=== PATIENT | female | born 1985 | race Caucasian/White ===

== ENCOUNTER 2016-11-29 14:21 | Emergency (ER) | payer OTHER ==
[~2016-11-29] VITALS: Ht 175.3 cm; Wt 99.5 kg
[~2016-11-29 14:21] MED LIST: BIOTIN1 MG PO; CEFTIN 250250 MG/TAB PO; NORCO 325 MG-7.1 TAB PO; ORTHO TRI-CYCLE1 TA2 PO; PRENATAL1 TA1 PO; REGLAN 10MG10 MG/TAB PO; ZANTAC 7575 MG PO; ZOFRAN ODT4 MG PO; ZOFRAN8 MG PO; [UNRECOGNIZED DRUG - OTHER]
[2016-11-29 14:23] VITALS: TEMP 99.6
[2016-11-29] MEDS ORDERED: XANAX 0.5MG0.5 MG PO (14:26)
[2016-11-29] MEDS ORDERED: TIROSINT150 MC1 PO (14:26)
[2016-11-29 15:34] LABS: BASO % 0.3 % (0.0-2.0); EOS % 0.3 % (0-4.0); GRAN # 9.2 (1.4-6.5); GRAN % 78.7 % (42.2-75.2); HEMATOCRIT 41.1 % (37.0-47.0); HEMOGLOBIN 14.4 g/dl (12.5-16.0); LYMPH # 1.6 (1.2-3.4); LYMPH % 13.6 % (20.0-51.0); MEAN CELL VOLUME 87 fl (80.0-100.0); MEAN CORPUSCULAR HEMOGLOBIN 30 pg (27.0-31.0); MEAN CORPUSCULAR HGB CONC 35 g/dl (33.0-37.0); MEAN PLATELET VOLUME 11.3 fl (7.4-10.4); MONO # 0.8 (0.1-0.6); MONO % 6.8 % (1.7-9.3); PLATELET COUNT 264 K/mm3 (130-400); RED BLOOD COUNT 4.73 M/mm3 (4.10-5.30); REDCELL DISTRIBUTION WIDTH-CV 12.2 % (11.5-14.5); WHITE BLOOD COUNT 11.7 K/mm3 (4.8-10.8)
[2016-11-29 15:46] LABS: ADJUSTED CALCIUM 9.5 mg/dL (8.4-10.2); ALANINE AMINOTRANSFERASE 58 U/L (9-52); ALBUMIN 4.6 gm/dL (3.5-5.0); ALKALINE PHOSPHATASE 59 U/L (50-136); ANION GAP 10 mmol/L (7-16); BLOOD UREA NITROGEN 6 mg/dL (7-17); CARBON DIOXIDE 24 mmol/L (22-30); CHLORIDE 108 mmol/L (98-107); GLUCOSE 98 mg/dL (74-106); MAGNESIUM 1.7 mg/dL (1.6-2.3); POTASSIUM 3.7 mmol/L (3.4-5.0); SODIUM 142 mmol/L (137-145); TOTAL PROTEIN 7.9 gm/dL (6.4-8.2)
[2016-11-29 16:18] LABS: TROPONIN-I < 0.012 ng/mL (0.000-0.034)
[2016-11-29] MEDS ORDERED: ATARAX 25MG25 MG/TAB PO (17:03)
[2016-11-29 17:09] VITALS: BP 121/74; PULSE 69
== END 2016-11-29 17:10 | disposition home or self-care (01) ==
LOC: COL.ER 14:21
PROVIDERS: Physician Assistant
DX: R00.2 Palpitations (principal); R07.89 Other chest pain; R94.6 Abnormal results of thyroid function studies; F41.9 Anxiety disorder, unspecified; E03.9 Hypothyroidism, unspecified

== ENCOUNTER 2017-01-19 09:01 | Emergency (ER) | payer OTHER ==
[~2017-01-19] VITALS: Ht 175.3 cm; Wt 94.1 kg
[~2017-01-19 09:01] MED LIST changes: +ATARAX 25MG25 MG/TAB PO; +TIROSINT150 MC1 PO; +XANAX 0.5MG0.5 MG PO
[2017-01-19 09:05] VITALS: TEMP 98.7
[2017-01-19] MEDS ORDERED: PHENERGAN 25 TA25 MG PO (09:09)
[2017-01-19 09:55] LABS: COLLECTION METHOD CLEAN CATCH
[2017-01-19 10:09] LABS: ADJUSTED CALCIUM 9.3 mg/dL (8.4-10.2); ALBUMIN 4.7 gm/dL (3.5-5.0); BILIRUBIN,TOTAL 0.8 mg/dL (0.0-1.0); CALCIUM 9.9 mg/dL (8.4-10.2); CREATININE, serum 0.73 mg/dL (0.52-1.25); POTASSIUM 3.5 mmol/L (3.4-5.0); TOTAL PROTEIN 8.1 gm/dL (6.4-8.2)
[2017-01-19 10:10] LABS: BASO % 0.2 % (0.0-2.0); EOS # 0.1 (0.0-0.7); EOS % 0.6 % (0-4.0); GRAN # 6.1 (1.4-6.5); GRAN % 73.1 % (42.2-75.2); HEMATOCRIT 44.2 % (37.0-47.0); HEMOGLOBIN 15.7 g/dl (12.5-16.0); LYMPH # 1.6 (1.2-3.4); LYMPH % 19.2 % (20.0-51.0); MEAN CELL VOLUME 85 fl (80.0-100.0); MEAN CORPUSCULAR HEMOGLOBIN 30 pg (27.0-31.0); MEAN CORPUSCULAR HGB CONC 36 g/dl (33.0-37.0); MEAN PLATELET VOLUME 11.4 fl (7.4-10.4); MONO # 0.5 (0.1-0.6); MONO % 6.5 % (1.7-9.3); PLATELET COUNT 287 K/mm3 (130-400); RED BLOOD COUNT 5.18 M/mm3 (4.10-5.30); WHITE BLOOD COUNT 8.3 K/mm3 (4.8-10.8)
[2017-01-19 10:20] LABS: MUCOUS Present /lpf; PH 6 (5-8); URINE APPEARANCE Clear; URINE BACTERIA None Seen /hpf; URINE BILIRUBIN Negative (NEGATIVE); URINE BLOOD 1+ (NEGATIVE); URINE COLOR Yellow; URINE GLUCOSE Negative (NEGATIVE); URINE KETONE 1+ (NEGATIVE); URINE LEUKOCYTE ESTERASE 1+ (NEGATIVE); URINE PROTEIN(semi-quant) Negative (NEGATIVE)
[2017-01-19 10:39] LABS: THYROID STIMULATING HORMONE 0.076 uIU/mL (0.465-4.680)
[2017-01-19 12:05] VITALS: BP 128/80
[2017-01-19] MEDS ORDERED: ANTIVERT 25MG25 MG PO (12:40)
[2017-01-19 12:48] VITALS: PULSE 82
== END 2017-01-19 12:49 | disposition home or self-care (01) ==
LOC: COL.ER 09:01
PROVIDERS: Emergency Medicine
DX: R42 Dizziness and giddiness (principal); E03.9 Hypothyroidism, unspecified; Z90.49 Acquired absence of other specified parts of digestive tract; Z98.51 Tubal ligation status
CPT/HCPCS: J1200; J1885; J2060; J2550; J7030

== ENCOUNTER 2017-03-24 23:50 | Emergency (ER) | payer OTHER ==
[~2017-03-24] VITALS: Ht 175.3 cm; Wt 97.7 kg
[~2017-03-24 23:50] MED LIST changes: +ANTIVERT 25MG25 MG PO; +PHENERGAN 25 TA25 MG PO
[2017-03-24] MEDS ORDERED: SYNTHROID0.137 MG PO (23:59)
[2017-03-25 00:26] LABS: INFLUENZA A NEGATIVE; INFLUENZA B NEGATIVE
[2017-03-25 00:44] LABS: BASO % 0.2 % (0.0-2.0); EOS % 0.3 % (0-4.0); GRAN % 79.5 % (42.2-75.2); HEMATOCRIT 39.1 % (37.0-47.0); HEMOGLOBIN 13.5 g/dl (12.5-16.0); LYMPH # 0.8 (1.2-3.4); LYMPH % 8.8 % (20.0-51.0); MEAN CELL VOLUME 87 fl (80.0-100.0); MEAN CORPUSCULAR HEMOGLOBIN 30 pg (27.0-31.0); MEAN CORPUSCULAR HGB CONC 35 g/dl (33.0-37.0); MEAN PLATELET VOLUME 10.7 fl (7.4-10.4); MONO % 10.7 % (1.7-9.3); PLATELET COUNT 212 K/mm3 (130-400); WHITE BLOOD COUNT 8.8 K/mm3 (4.8-10.8)
[2017-03-25 00:54] LABS: ALBUMIN 4.1 gm/dL (3.5-5.0); BILIRUBIN,TOTAL 0.2 mg/dL (0.0-1.0); CALCIUM 9.1 mg/dL (8.4-10.2); CREATININE, serum 0.74 mg/dL (0.52-1.25); POTASSIUM 3.6 mmol/L (3.4-5.0); TOTAL PROTEIN 7.3 gm/dL (6.4-8.2)
[2017-03-25 01:50] LABS: COLLECTION METHOD CLEAN CATCH
[2017-03-25 01:56] LABS: MUCOUS Present /lpf; PH 5 (5-8); SQUAMOUS EPITHELIAL 0-2 /hpf; URINE APPEARANCE Clear; URINE BACTERIA None Seen /hpf; URINE BILIRUBIN Negative (NEGATIVE); URINE BLOOD 1+ (NEGATIVE); URINE COLOR Straw; URINE GLUCOSE Negative (NEGATIVE); URINE KETONE Negative (NEGATIVE); URINE LEUKOCYTE ESTERASE Negative (NEGATIVE); URINE PROTEIN(semi-quant) Negative (NEGATIVE); URINE RBC 0-2 /hpf; URINE UROBILINOGEN Negative (NEGATIVE); URINE WBC 0-2 /hpf
[2017-03-25 02:10] VITALS: TEMP 98
[2017-03-25 02:59] VITALS: BP 109/62; PULSE 88
== END 2017-03-25 03:01 | disposition home or self-care (01) ==
LOC: COL.ER 23:50
PROVIDERS: Emergency Medicine
DX: B34.9 Viral infection, unspecified (principal); E03.9 Hypothyroidism, unspecified
CPT/HCPCS: J1885; J2765; J7030

== ENCOUNTER 2017-05-01 15:16 | Emergency (ER) | payer OTHER ==
[~2017-05-01] VITALS: Ht 175.3 cm; Wt 92.7 kg
[~2017-05-01 15:16] MED LIST changes: +SYNTHROID0.137 MG PO
[2017-05-01 15:19] VITALS: TEMP 98.4
[2017-05-01] MEDS ORDERED: FIORICET 325 MG1 TA1 PO (15:26)
[2017-05-01 16:41] LABS: BASO % 0.2 % (0.0-2.0); EOS # 0.1 (0.0-0.7); EOS % 0.6 % (0-4.0); GRAN # 6.7 (1.4-6.5); GRAN % 69.3 % (42.2-75.2); HEMATOCRIT 41.7 % (37.0-47.0); HEMOGLOBIN 14.7 g/dl (12.5-16.0); LYMPH # 2.2 (1.2-3.4); MEAN CELL VOLUME 87 fl (80.0-100.0); MEAN CORPUSCULAR HEMOGLOBIN 31 pg (27.0-31.0); MEAN CORPUSCULAR HGB CONC 35 g/dl (33.0-37.0); MEAN PLATELET VOLUME 10.9 fl (7.4-10.4); MONO # 0.7 (0.1-0.6); MONO % 6.7 % (1.7-9.3); PLATELET COUNT 272 K/mm3 (130-400); RED BLOOD COUNT 4.79 M/mm3 (4.10-5.30); REDCELL DISTRIBUTION WIDTH-CV 12.5 % (11.5-14.5)
[2017-05-01 16:54] LABS: CALCIUM 9.8 mg/dL (8.4-10.2); CREATININE, serum 0.77 mg/dL (0.52-1.25); MAGNESIUM 1.6 mg/dL (1.6-2.3); POTASSIUM 3.6 mmol/L (3.4-5.0)
[2017-05-01 17:45] VITALS: BP 113/76; PULSE 70
== END 2017-05-01 17:45 | disposition home or self-care (01) ==
LOC: COL.ER 15:16
PROVIDERS: Emergency Medicine
DX: F41.9 Anxiety disorder, unspecified (principal); G43.909 Migraine, unspecified, not intractable, without status migrainosus; E03.9 Hypothyroidism, unspecified

== ENCOUNTER 2017-05-10 14:29 | Emergency (ER) | payer OTHER ==
[~2017-05-10] VITALS: Ht 175.3 cm; Wt 95.5 kg
[~2017-05-10 14:29] MED LIST changes: +FIORICET 325 MG1 TA1 PO
[2017-05-10 14:30] VITALS: TEMP 97.5
[2017-05-10] MEDS ORDERED: TOPAMAX 25MG25 M1 PO (15:52)
[2017-05-10] MEDS ORDERED: KLONOPIN 0.5MG0.5 MG PO (15:53)
[2017-05-10 17:20] VITALS: BP 121/78; PULSE 88
== END 2017-05-10 17:25 | disposition home or self-care (01) ==
LOC: COL.ER 14:29
DX: F41.9 Anxiety disorder, unspecified (principal); R42 Dizziness and giddiness; T42.4X5A Adverse effect of benzodiazepines, initial encounter; G43.909 Migraine, unspecified, not intractable, without status migrainosus; E03.9 Hypothyroidism, unspecified
CPT/HCPCS: J1885; J2060; J7030

== ENCOUNTER 2017-06-01 18:46 | Emergency (ER) | payer OTHER ==
[~2017-06-01] VITALS: Ht 175.3 cm; Wt 87.7 kg
[~2017-06-01 18:46] MED LIST changes: +KLONOPIN 0.5MG0.5 MG PO; +TOPAMAX 25MG25 M1 PO
[2017-06-01 19:00] VITALS: TEMP 99.1
[2017-06-01] MEDS ORDERED: XANAX 0.5MG0.5 MG PO (19:08)
[2017-06-01 20:21] LABS: BASO % 0.3 % (0.0-2.0); EOS # 0.1 (0.0-0.7); EOS % 0.6 % (0-4.0); GRAN # 8.3 (1.4-6.5); GRAN % 69.1 % (42.2-75.2); HEMOGLOBIN 16.2 g/dl (12.5-16.0); LYMPH # 2.7 (1.2-3.4); LYMPH % 22.2 % (20.0-51.0); MEAN CELL VOLUME 84 fl (80.0-100.0); MEAN CORPUSCULAR HEMOGLOBIN 30 pg (27.0-31.0); MEAN CORPUSCULAR HGB CONC 36 g/dl (33.0-37.0); MEAN PLATELET VOLUME 10.7 fl (7.4-10.4); MONO # 0.9 (0.1-0.6); MONO % 7.4 % (1.7-9.3); PLATELET COUNT 299 K/mm3 (130-400); RED BLOOD COUNT 5.33 M/mm3 (4.10-5.30); REDCELL DISTRIBUTION WIDTH-CV 11.9 % (11.5-14.5)
[2017-06-01 20:30] LABS: ALANINE AMINOTRANSFERASE 36 U/L (9-52); ALBUMIN 5.1 gm/dL (3.5-5.0); ALKALINE PHOSPHATASE 75 U/L (50-136); ANION GAP 14 mmol/L (7-16); AST,SGOT 18 U/L (15-37); BILIRUBIN,TOTAL 0.5 mg/dL (0.0-1.0); BLOOD UREA NITROGEN 9 mg/dL (7-17); CALCIUM 9.7 mg/dL (8.4-10.2); CARBON DIOXIDE 22 mmol/L (22-30); CHLORIDE 102 mmol/L (98-107); CREATININE, serum 0.93 mg/dL (0.52-1.25); GLUCOSE 98 mg/dL (74-106); POTASSIUM 3.4 mmol/L (3.4-5.0); SODIUM 138 mmol/L (137-145); TOTAL PROTEIN 8.5 gm/dL (6.4-8.2)
[2017-06-01 20:42] LABS: TROPONIN-I < 0.012 ng/mL (0.000-0.034)
[2017-06-01 22:02] VITALS: BP 107/76; PULSE 72
== END 2017-06-01 22:03 | disposition home or self-care (01) ==
LOC: COL.ER 18:46
PROVIDERS: Nurse Practitioner
DX: F41.9 Anxiety disorder, unspecified (principal); R07.9 Chest pain, unspecified; E03.9 Hypothyroidism, unspecified; E06.3 Autoimmune thyroiditis; Z90.49 Acquired absence of other specified parts of digestive tract; Z98.51 Tubal ligation status